=== PATIENT | female | born 1945 | race Caucasian/White ===

== ENCOUNTER 2016-08-14 15:36 | Outpatient (RCR) | payer MEDICARE, BC ==
[~2016-08-14 15:36] MED LIST: BISOPROLOL AND1 TA1 PO; FLONASE NASAL S16 GM NS; NEXIUM40 MG PO; XANAX0.25 MG PO; ZIAC 5/6.25MG T1 TAB PO
== END 2016-11-12 | disposition home or self-care (01) ==
LOC: CARDREHAB 15:36
DX: I25.10 Atherosclerotic heart disease of native coronary artery without angina pectoris (principal)

== ENCOUNTER 2016-11-16 15:00 | Outpatient (RCR) | payer MEDICARE, BC ==
[2015-03-01 16:44] VITALS: BP 162/91
== END 2017-02-14 | disposition home or self-care (01) ==
LOC: CARDREHAB
DX: I25.10 Atherosclerotic heart disease of native coronary artery without angina pectoris (principal)

== ENCOUNTER 2017-02-10 12:00 | Outpatient (RCR) | payer MEDICARE, BC ==
[2015-03-01 16:44] VITALS: BP 162/91
== END 2017-06-14 08:03 | disposition home or self-care (01) ==
LOC: CARDREHAB 12:00
DX: Z48.812 Encounter for surgical aftercare following surgery on the circulatory system (principal)

== ENCOUNTER 2017-06-19 14:00 | Outpatient (RCR) | payer MEDICARE, BC ==
[2015-03-01 16:44] VITALS: BP 162/91
== END 2017-08-21 08:43 | disposition home or self-care (01) ==
LOC: CARDREHAB 14:00
DX: Z48.812 Encounter for surgical aftercare following surgery on the circulatory system (principal)

== ENCOUNTER → 2018-06-27 | Outpatient (CLI) | payer MEDICARE, BC ==
[2015-03-01 16:44] VITALS: BP 162/91
== END ==
LOC: RAD 15:35
DX: I50.9 Heart failure, unspecified (principal); S20.219A Contusion of unspecified front wall of thorax, initial encounter; R07.81 Pleurodynia; J90 Pleural effusion, not elsewhere classified; W19.XXXA Unspecified fall, initial encounter; Z95.0 Presence of cardiac pacemaker

== ENCOUNTER → 2019-06-18 | Outpatient (RCR) | payer MEDICARE, BC ==
[2015-03-01 16:44] VITALS: BP 162/91
== END | disposition home or self-care (01) ==
LOC: CARDREHAB
DX: I50.9 Heart failure, unspecified (principal)

== ENCOUNTER 2019-07-23 10:00 | Outpatient (RCR) | payer MEDICARE, BC ==
[2015-03-01 16:44] VITALS: BP 162/91
== END 2019-09-17 | disposition home or self-care (01) ==
LOC: CARDREHAB
DX: I50.9 Heart failure, unspecified (principal)